=== PATIENT | male | born 1980 | race Caucasian/White ===

== ENCOUNTER 2020-11-19 13:02 | Emergency (ER) | payer OTHER ==
[2020-11-19 15:15] LABS: BASOPHIL 0.2 % (0-2); EOSINOPHIL 0.1 % (0-5); HCT 44.7 % (42.0-52.0); HGB 15.2 g/dl (13.2-18.0); LYMPHOCYTE 8.2 % (15-48); MCH 30.6 pg (25.0-31.0); MCV 89.9 fL (78.0-100.0); MONOCYTE 5.7 % (0-12); MPV 9.6 fL (6.0-9.5); NEUTROPHIL 85.3 % (41-80); NRBC 0; PLT 147 K/uL (150-400); RBC 4.97 M/uL (4.70-6.00)
[2020-11-19 15:31] LABS: ALBUMIN 3.9 g/dL (3.4-5.0); BILIRUBIN - TOTAL 1.3 mg/dL (0.2-1.0); BUN/CREAT RATIO (CALC) 14.6 RATIO; CREATININE 0.82 mg/dL (0.67-1.17); GLOBULIN (CALCULATION) 4.9 g/dL; POTASSIUM 3.7 mmol/L (3.5-5.1); TOTAL PROTEIN 8.8 g/dL (6.4-8.2)
[2020-11-19 15:41] LABS: BILIRUBIN 1+ mg/dL (NEGATIVE); BLOOD NEGATIVE Ery/uL (NEGATIVE); CLARITY CLEAR (CLEAR); COLOR YELLOW (YELLOW); GLUCOSE (U) NORMAL (NORMAL); LEUKOCYTES NEGATIVE Leu/uL (NEGATIVE); NITRITE POSITIVE (NEGATIVE); PROTEIN 2+ mg/dL (NEGATIVE); SPECIFIC GRAVITY >=1.030 (1.001-1.030)
[2020-11-19 15:47] LABS: BACTERIA TRACE; MUCOUS MODERATE; URINARY RBC RARE
[2020-11-19] MEDS ORDERED: CLEOCIN300 MG PO (19:27)
[2020-11-23 13:10] LABS: CHLAMYDIA TRACHOMATIS, NAA Negative (Negative); NEISSERIA GONORRHOEAE, NAA Negative (Negative)
== END 2020-11-19 19:40 | disposition home or self-care (01) ==
LOC: FER 13:02
PROVIDERS: Emergency Medicine; Nurse Practitioner Family
DX: N61.0 Mastitis without abscess (principal); N39.0 Urinary tract infection, site not specified; I10 Essential (primary) hypertension; K21.9 Gastro-esophageal reflux disease without esophagitis; Z79.82 Long term (current) use of aspirin; Z79.899 Other long term (current) drug therapy
CPT/HCPCS: 36415; 71260; 80053; 81001; 83605; 85025; 87040; 87088; 87491; 87591; J1885; J2405; J7030; Q9967